=== PATIENT | male | born 1960 | race Caucasian/White ===

== ENCOUNTER 2022-06-10 09:53 | Day surgery (SDC) | payer MEDICAID ==
[2022-06-10] MEDS ORDERED: Lactated Ringers 1,000 ML IV SCH (10:00)
[2022-06-10] MEDS ORDERED: Sodium Chloride 0.9% 10 ML Syringe FLUSH PRN (10:00)
[2022-06-10] MEDS ORDERED: Propofol 200 MG/20 ML SDV ONE (10:21)
[2022-06-10] MEDS ORDERED: Midazolam 1 MG/ML 2 ML SDV ONE (10:21)
== END 2022-06-10 13:21 | disposition home or self-care (01) ==
LOC: KA.SDS 09:53
PROVIDERS: ATTEND Surgery
DX: Z12.11 Encounter for screening for malignant neoplasm of colon (principal); D12.7 Benign neoplasm of rectosigmoid junction; D12.3 Benign neoplasm of transverse colon; F32.A Depression, unspecified; J45.909 Unspecified asthma, uncomplicated; F31.9 Bipolar disorder, unspecified; R73.09 Other abnormal glucose; E78.00 Pure hypercholesterolemia, unspecified; I10 Essential (primary) hypertension; E05.90 Thyrotoxicosis, unspecified without thyrotoxic crisis or storm; G47.00 Insomnia, unspecified; E55.9 Vitamin D deficiency, unspecified; Z91.048 Other nonmedicinal substance allergy status; Z79.899 Other long term (current) drug therapy; Z98.890 Other specified postprocedural states
CPT/HCPCS: 00812; J2250; J2704; J7120

== ENCOUNTER 2023-11-08 04:23 | Emergency (ER) | payer MEDICARE, BC ==
[2023-11-08] MEDS: Sodium Chloride 0.9% 1,000 ML ONE (04:48)
[2023-11-08] MEDS: Ondansetron 4 MG/2 ML SDV IVPUSH ONE (04:48)
[2023-11-08] MEDS: Ondansetron 4 MG/2 ML SDV ONE (04:48)
[2023-11-08] MEDS: Sodium Chloride 0.9% 1,000 ML IV ONE ×2 (04:48→05:50)
[2023-11-08] MEDS ORDERED: Sodium Chloride 0.9% 10 ML Syringe FLUSH PRN (04:59)
== END 2023-11-08 06:50 | disposition home or self-care (01) ==
LOC: KA.ED 04:23
DX: E86.0 Dehydration (principal); I10 Essential (primary) hypertension; J45.909 Unspecified asthma, uncomplicated; Z91.09 Other allergy status, other than to drugs and biological substances; Z79.51 Long term (current) use of inhaled steroids; Z79.899 Other long term (current) drug therapy; Y84.2 Radiological procedure and radiotherapy as the cause of abnormal reaction of the patient, or of later complication, without mention of misadventure at the time of the procedure
CPT/HCPCS: 96361; 96374; 99284; 99284-25; J2405; J7030